=== PATIENT | female | born 1990 | race Caucasian/White ===

== ENCOUNTER 2017-07-31 20:53 | Emergency (ER) | payer BC, OTHER ==
[2017-07-31] MEDS ORDERED: NORMAL SALINE 1,000 ML IV ONE ×2 (21:10→22:10)
--- NOTE | 2017-07-31 22:14 | ERNOTE ---
Medical Problem HPI - General Chief Complaint: Nausea/Vomiting Time Seen by Provider: 07/31/17 21:09 Source: patient Exam Limitations: no limitations - Immun/Allergies/Home Medications Immunizations: IMMUNIZATION HX Immunizations Up to Date Yes History of Influenza Vaccine No Hx Pneumococcal Vaccination No Allergies/Adverse Reactions: Allergies No Known Allergies Allergy (Unverified 07/31/17 21:11) Home Medications: HOME MEDICATIONS Sulfamethoxazole/Trimethoprim [Bactrim Ds] 1 tab PO BID #5 tab 08/01/17 [Last Taken Unknown] - History of Present History Narrative: Pt had onset of dizziness and nausea/ vomiting/ diarrhea around 18:30 tonight. She presented to the ED and during triage she had a syncopal episode for a few seconds. She immediately became awake and alert without intervention Review of Systems - Review of Systems Constitutional: Absent: recent illness, fever EYE: Present: no symptoms reported ENT: Present: no symptoms reported Respiratory: Present: no symptoms reported Cardiology: Present: no symptoms reported Gastrointestinal/Abdominal: Present: See HPI, nausea, vomiting, diarrhea. Absent: constipation Genitourinary: Present: no symptoms reported Musculoskeletal: Present: no symptoms reported Neurological: Present: See HPI Endocrine: Absent: excessive sweating Hematologic/Lymphatic: Absent: easy bruising Psych: Present: no symptoms reported - Patient's Past Medical History Patient History - Medical: No pertinent hx Patient History - Cardiac/Respiratory: No pertinent hx Patient History - Cancer: No Hx of Cancer Patient History - Surgical Procedures: Other Patient History - Other: None - Social History Living Situations: home Psych History: No pertinent hx Smoking Status: Never smoker Have you smoked in the past 12 months: No Do you dip or chew tobacco: No Alcohol Use: occasionally Drug Use: none - Immunizations Immunizations Up to Date: Yes Hx Pneumococcal Vaccination: No History of Influenza Vaccine: No Physical Exam - Physical Exam General Appearance: Present: wd/wn, alert, no apparent distress Head Exam: Present: normal inspection, no evidence of injury Eye Exam: Normal inspection: bilateral, PERRL: bilateral, EOMI: bilateral Ears, Nose, Throat: Present: normal ENT inspection Neck: Present: normal inspection, nontender Respiratory: Present: no respiratory distress, normal breath sounds, lungs clear Cardiovascular/Chest: Present: regular rate, rhythm, no murmur, normal peripheral pulses Gastrointestinal/Abdominal: Present: tenderness - diffusely , abnormal bowel sounds - bilateral Back Exam: Present: normal inspection, normal range of motion Extremity Exam: Present: normal inspection, no edema Neurological Exam: Present: alert, oriented, normal mood/affect, no motor/ sensory deficits Skin Exam: Present: normal color, warm/dry ED Progress - Results and Orders Patient's Lab Results:: I have reviewed the patient's lab results. Results and Orders: Laboratory Tests 07/31/17 07/31/17 07/31/17 00:01 22:15 22:15 WBC 10.2 Hgb 14.7 Hct 41.2 Plt Count 181 Neutrophils % 88.7 H Sodium 137 Plasma Sodium 137 Chloride 104 Carbon Dioxide 21.6 L Anion Gap 15.4 H BUN 8 Creatinine 1.26 Est GFR (Non-Af Amer) 54 L D BUN/Creatinine Ratio 6.3 L Random Glucose 121 H Calcium 8.6 Calcium Adj for Albumin 8.4 Total Bilirubin 0.7 AST 26 ALT 27 Alkaline Phosphatase 88 Total Protein 7.3 Albumin 3.8 Serum HCG, Qual Urine Color Dark yellow Urine Appearance Clear Urine pH 6.0 Ur Specific [place] >=1.030 Urine Protein 30 H Urine Glucose (UA) Negative Urine Ketones 15 Urine Blood Negative Urine Nitrate Negative Urine Bilirubin 3 H Urine Ictotest Negative Prot Sulfosalicylic Acd 1+ Urine Urobilinogen Normal Ur Leukocyte Esterase 25 H Urine RBC None seen Urine WBC 0-5 Ur Epithelial Cells 0-5 Hyaline Casts 5-10 H Fine Granular Casts 5-10 H Urine Culture Comments Culture to follow 07/31/17 22:15 WBC Hgb Hct Plt Count Neutrophils % Sodium Plasma Sodium Chloride Carbon Dioxide Anion Gap BUN Creatinine Est GFR (Non-Af Amer) BUN/Creatinine Ratio Random Glucose Calcium Calcium Adj for Albumin Total Bilirubin AST ALT Alkaline Phosphatase Total Protein Albumin Serum HCG, Qual Negative Urine Color Urine Appearance Urine pH Ur Specific [place] Urine Protein Urine Glucose (UA) Urine Ketones Urine Blood Urine Nitrate Urine Bilirubin Urine Ictotest Prot Sulfosalicylic Acd Urine Urobilinogen Ur Leukocyte Esterase Urine RBC Urine WBC Ur Epithelial Cells Hyaline Casts Fine Granular Casts Urine Culture Comments - Vital Signs Patient's Vital Signs:: I have reviewed the patient's vital signs. Vital Signs: Vital Signs 07/31/17 07/31/17 07/31/17 21:04 21:22 21:37 Temperature 36.7 C Pulse Rate 86 85 92 Respiratory 12 10 L 13 Rate Blood Pressure 114/59 113/68 114/67 O2 Sat by Pulse 99 100 96 Oximetry - EKG EKG: NSR - with short [place] interval - Progress/Reassessment Chief Complaint: Nausea/Vomiting Departure Clinical Impression: Vasovagal episode Vomiting Qualifiers: Vomiting type: unspecified Vomiting Intractability: non-intractable Nausea presence: with nausea Qualified Code(s): R11.2 - Nausea with vomiting, unspecified UTI (urinary tract infection) Qualifiers: Urinary tract infection type: acute cystitis Hematuria presence: without hematuria Qualified Code(s): N30.00 - Acute cystitis without hematuria - Departure Disposition: Home self-care Condition: Good Instructions: Nausea, Adult, Urinary Tract Infection, Adult, [id number], Diarrhea, Adult, [id number] Additional Instructions: Drink plenty of fluids such as gatorade diluted half with water. Complete the antibiotics as prescribed and take the anti nausea medication as needed. Prescriptions: Sulfamethoxazole/Trimethoprim [Bactrim Ds] 1 tab PO BID #5 tab
[2017-07-31 22:24] LABS: Hematocrit 41.2 % (37.0-47.0); Hemoglobin 14.7 gm/dL (12.5-16.0); Mean Cell Volume 92.8 fl (78-100); Mean Corpuscular Hemoglobin 33.1 pg (27-31); Mean Corpuscular Hgb Conc 35.7 g/dl (32-36); Mean Platelet Volume 9.4 fl (6.0-9.5); Neutrophil # 9.1 K/mm3 (1.3-6.0); Neutrophil % 88.7 % (42-75.0); Platelet Count 181 K/mm3 (150-450); Red Blood Count 4.44 M/mm3 (4.2-5.4); Red Cell Distribution Width 11.7 % (11.5-14.0); White Blood Count 10.2 K/mm3 (4.0-10.5)
[2017-07-31 22:35] LABS: Albumin * 3.8 gm/dl (3.4-5.0); Anion Gap 15.4 mmol/L (6.8-13.8); BUN/Creatinine Ratio 6.3 (9.0-21.6); Bilirubin, Total 0.7 mg/dL (0.0-1.1); Ca. Corrected For Albumin 8.4 mg/dL (8.4-10.2); Calcium * 8.6 mg/dL (7.9-10.9); Carbon Dioxide 21.6 mmol/L (24-32.6); Total Protein 7.3 gm/dL (6.2-8.2)
[2017-08-01 00:46] LABS: Urine Appearance Clear; Urine Bilirubin 3 mg/dl (NEGATIVE); Urine Color Dark Yellow; Urine Ketone 15 mg/dL (NEGATIVE)
[2017-08-01 00:47] LABS: Urine Bacteria 3+; Urine Blood Negative /ul (NEGATIVE); Urine Nitrite Negative (NEGATIVE); Urine Protein 30 mg/dL (NEGATIVE); Urine RBC None Seen /hpf (0-5); Urine Specific Gravity >=1.030 SP.GR. (1.005-1.010); Urine Urobilinogen Normal (NORMAL); Urine WBC 0-5 /hpf (0-5)
[2017-08-01] MEDS ORDERED: SULFAMETHOXAZOLE/TRIMETHOPRIM 1 TAB TABLET PO ONE (01:08)
[2017-08-01] MEDS ORDERED: ONDANSETRON 4 MG TAB.RAPDIS PO ONE (01:10)
[2017-08-01] MEDS ORDERED: SULFAMETHOXAZOLE/TRIMETHOPRIM 1 TAB TABLET ONE (01:21)
[2017-08-01] MEDS ORDERED: ONDANSETRON 4 MG TAB.RAPDIS ONE (01:21)
[2017-08-01 01:40] VITALS: BP 115/64
== END 2017-08-01 01:30 | disposition home or self-care (01) ==
LOC: ER 20:53
DX: R55 Syncope and collapse; N30.00 Acute cystitis without hematuria; R11.2 Nausea with vomiting, unspecified